=== PATIENT | male | born 1980 | race Caucasian/White ===

== ENCOUNTER 2017-04-03 07:04 | Day surgery (SDC) | payer BC ==
[2017-04-03] MEDS ORDERED: Desflurane 240 ML Bottle ONE (07:16)
[2017-04-03] MEDS ORDERED: Lidocaine 2% 5 ML SDV ONE (07:22)
[2017-04-03] MEDS ORDERED: Propofol 200 MG/20 ML SDV ONE (07:22)
[2017-04-03] MEDS ORDERED: Midazolam 1 MG/ML 2 ML SDV ONE (07:22)
[2017-04-03] MEDS ORDERED: fentaNYL 100 MCG/2 ML SDV ONE (07:22)
[2017-04-03] MEDS ORDERED: Bupivacaine 0.25% 10 ML SDV ONE (07:25)
--- NOTE | 2017-04-03 07:35 | PCM.PREANE ---
Preanesthetic Assessment - Anesthesia/Transfusion/Family Hx Anesthesia History: Prior Anesthesia Without Reaction Family History of Anesthesia Reaction: No Transfusion History: No Prior Transfusion(s) Intubation History: Unknown - Review of Systems General: No Symptoms Pulmonary: No Symptoms Cardiovascular: No Symptoms Gastrointestinal: No Symptoms Neurological: No Symptoms Other: Reports: None - Physical Assessment O2 Sat by Pulse Oximetry: 96 Respiratory Rate: 16 Vital Signs: Last Vital Signs Temp 36.3 C 04/03/17 07:13 Pulse 64 04/03/17 07:13 Resp 16 04/03/17 07:13 BP 130/74 04/03/17 07:13 Pulse Ox 96 04/03/17 07:13 Height: 1.91 m Weight: 127.006 kg ASA Class: 2 Mental Status: Alert & Oriented x3 Airway Class: Mallampati = 2 Dentition: Reports: Broken Tooth/Teeth (multiple), Missing Tooth/Teeth (multiple ) Thyro-Mental Finger Breadths: 3 Mouth Opening Finger Breadths: 3 ROM/Head Extension: Full Lungs: Clear to Auscultation, Normal Respiratory Effort Cardiovascular: Regular Rate, Regular Rhythm - Allergies Allergies/Adverse Reactions: Allergies Allergy/AdvReac Type Severity Reaction Status Date / Time No Known Allergies Allergy Verified 03/19/14 21:39 - Blood Blood Available: No - Anesthesia Plan Pre-Op Medication Ordered: None - Acknowledgements Anesthesia Type Planned: MAC Pt an Appropriate Candidate for the Planned Anesthesia: Yes Alternatives and Risks of Anesthesia Discussed w Pt/Guardian: Yes Pt/Guardian Understands and Agrees with Anesthesia Plan: Yes PreAnesthesia Questionnaire HEENT History: Reports: None Respiratory History: Reports: Asthma, Other (See Below) Other Respiratory History: sports induced asthma as a child Gastrointestinal History: Reports: GERD Musculoskeletal History: Reports: Fracture Other Musculoskeletal History: fx leg as a child Endocrine/Metabolic History: Reports: Obesity/BMI 30+ - Past Surgical History Head Surgeries/Procedures: Reports: None HEENT Surgical History: Reports: LASIK, Tonsillectomy - SUBSTANCE USE Smoking Status *Q: Former Smoker (quit 2 weeks ago) Tobacco Use Within Last Twelve Months: Cigarettes Days Per Week of Alcohol Use: 0 Recreational Drug Use History: No - HOME MEDS Home Medications: Home Meds Calcium Carbonate [Tums] 1 tab.chew CHEW ASDIRECTED PRN 03/31/17 [History] - CURRENT (IN HOUSE) MEDS Current Meds: Current Medications Bupivacaine HCl (Sensorcaine-Mpf 0.25%) 10 ml INJECT ONETIME ONE Stop: 04/03/17 08:01 Cefazolin Sodium/Dextrose 2 gm (/ Premix) 50 mls @ 100 mls/hr IV ONETIME ONE Stop: 04/03/17 08:29 Lactated Ringer's (Ringers, Lactated) 1,000 mls @ 125 mls/hr IV ASDIRECTED MICHELLE Last Admin: 04/03/17 07:20 Dose: 125 mls/hr Discontinued Medications Bupivacaine HCl (Sensorcaine-Mpf 0.25%) Confirm Administered Dose 20 ml .ROUTE .STK-MED ONE Stop: 04/03/17 07:26 Desflurane (Suprane) Confirm Administered Dose 480 ml .ROUTE .STK-MED ONE Stop: 04/03/17 07:17 Fentanyl (Sublimaze) Confirm Administered Dose 100 mcg .ROUTE .STK-MED ONE Stop: 04/03/17 07:23 Lidocaine (Xylocaine-Mpf 2%) Confirm Administered Dose 5 ml .ROUTE .STK-MED ONE Stop: 04/03/17 07:23 Midazolam HCl (Versed 1 Mg/Ml) Confirm Administered Dose 2 mg .ROUTE .STK-MED ONE Stop: 04/03/17 07:23 Propofol (Diprivan 20 Ml) Confirm Administered Dose 400 mg .ROUTE .STK-MED ONE Stop: 04/03/17 07:23
[2017-04-03] MEDS ORDERED: Bupivacaine 0.25% 10 ML SDV INJECT ONE (08:00)
[2017-04-03] MEDS ORDERED: ceFAZolin 2 GM in Premix Bag 1 BAG IV ONE (08:00)
[2017-04-03] MEDS ORDERED: Lactated Ringers 1,000 ML IV SCH (08:00)
[2017-04-03] MEDS ORDERED: fentaNYL 100 MCG/2 ML SDV IVPUSH PRN (09:00)
--- NOTE | 2017-04-06 09:47 | PCM.OPNOTE ---
- General Post-Op/Procedure Note Date of Surgery/Procedure: 04/03/17 Operative Procedure(s): excision of right index finger mass Pre Op Diagnosis: right index finger mass Post-Op Diagnosis: Same Anesthesia Technique: Local, MAC Primary Surgeon: Za Rosenberg Napper Grinder: Rosalie Chopra Complications: None Condition: Good
--- NOTE | 2017-04-06 16:31 | OR ---
SURGEON: HELLEN HOFF MD DATE OF PROCEDURE: 04/03/2017 PREOPERATIVE DIAGNOSIS: Right index finger mass. 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 PROCEDURE: Excision of right index finger mass, giant cell tumor. EMPLOYEE RELATION MANAGER: MAGGI Madrigal. ANESTHESIA: Local MAC. INDICATIONS: Mr. Macedo is a 36-year-old gentleman with a mass of the right index finger. Risks and benefits of excision were discussed with him. He is in agreement to proceed. It is causing pain and discomfort. Risks were including, but not limited to, bleeding, infection, damage to underlying or overlying structures, possible need for future interventions, and possible scarring. PROCEDURE IN DETAIL: After informed consent was obtained and placed on the chart, the patient was brought to the operating theater and laid in a supine position. After adequate MAC anesthesia was obtained, the area was prepped and draped and a time-out was completed to confirm side and site. The digit was anesthetized in a digital block. The arm was then exsanguinated and the tourniquet was insufflated to 200 mmHg. Dissection was carried longitudinally over the mass itself and was easily dissected circumferentially while protecting the neurovascular bundles. The mass was excised and sent for pathology. The area was irrigated and then closed with 5-0 nylon stitch in a horizontal mattress running fashion. The wound was dressed with Xeroform fluffs and a Kerlix gauze dressing. The patient tolerated this well. All counts and needles were correct at the end of the case. FOLLOWUP INSTRUCTIONS: The patient will see us in 10 to 14 days sooner if any problems, questions, or concerns and was given a prescription for pain control. REASON EMPLOYEE RELATION MANAGER WAS NECESSARY: Reason for financial legal assistant was, stabilization of the fingers and retraction. HEGGTADAM / NELLL /[id number]
== END 2017-04-03 09:59 | disposition home or self-care (01) ==
LOC: MW.SDS 07:04
PROVIDERS: ATTEND Plastic Surgery
DX: D48.7 Neoplasm of uncertain behavior of other specified sites (principal); E66.01 Morbid (severe) obesity due to excess calories; J45.909 Unspecified asthma, uncomplicated; K21.9 Gastro-esophageal reflux disease without esophagitis; Z90.89 Acquired absence of other organs; Z87.891 Personal history of nicotine dependence; Z68.35 Body mass index [BMI] 35.0-35.9, adult
CPT/HCPCS: 11426; J2250; J3010; J7120; 01810; 88304; J2704